=== PATIENT | female | born 1935 | race Caucasian/White ===

== ENCOUNTER → 2024-04-09 | Outpatient (CLI) | payer OTHER, SELFPAY ==
[2024-04-09 11:44] LABS: Basophils # (Auto) 0.1 Thou/mm3 (0.0-0.2); Basophils % (Auto) 2 % (0-2.5); Eosinophils # (Auto) 0.1 Thou/mm3 (0.0-0.5); Eosinophils % (Auto) 4 % (0-10); Hematocrit 38.7 % (36.0-46.0); Hemoglobin 12.6 g/dL (12.0-16.0); Immature Granulocytes % (Auto) 0 % (0-0); Immature Granulocytes Auto 0.01 Thou/mm3 (0.00-0.00); Lymphocytes # (Auto) 0.9 Thou/mm3 (1.0-4.8); Lymphocytes % (Auto) 24 % (10-50); Mean Corpuscular HGB Conc 32.6 g/dl (31.0-37.0); Mean Corpuscular Hemoglobin 31.7 pg (25.0-35.0); Mean Corpuscular Volume 98 fL (80-100); Monocytes # (Auto) 0.5 Thou/mm3 (0.0-0.8); Monocytes % (Auto) 15 % (0-12); Neutrophils # (Auto) 1.9 Thou/mm3 (1.8-7.7); Neutrophils % (Auto) 54 % (37-80); Nucleated Red Blood Cell % 0 /100 WBC (0); Platelet Count 216 Thou/mm3 (140-440); RDW Standard Deviation 52.1 fL (36.4-46.3); Red Blood Count 3.97 Miln/mm3 (4.00-5.20); White Blood Count 3.6 Thou/mm3 (3.6-11.0)
[2024-04-09 12:12] LABS: Glucose Estimated Average 94 mg/dL (80-131); Hemoglobin A1C 4.9 % Hgb (4.8-6.0)
[2024-04-09 13:05] LABS: Alanine Aminotransferase 16 U/L (10-49); Albumin, Serum 4.3 gm/dL (3.4-4.8); Alkaline Phosphatase 102 U/L (46-116); Anion Gap 4 (7-16); Aspartate Amino Transferase 16 U/L (0-34); BUN/Creatinine Ratio 23 Ratio (12-20); Bilirubin,Total 0.7 mg/dL (0.3-1.2); Blood Urea Nitrogen 21 mg/dL (9-23); Calcium 10.6 mg/dL (8.3-10.6); Calcium (Corrected) 10.6 mg/dL (8.5-10.1); Carbon Dioxide 28.7 mMol/L (20.0-31.0); Cardiac Risk Estimate 2.4 RATIO (3.7-5.6); Chloride 112 mMol/L (98-107); Cholesterol 153 mg/dL (132-200); Creatinine (Component) 0.9 mg/dL (0.6-1.3); Globulin 2.1 gm/dL (2.3-3.5); Glucose 112 mg/dL (74-106); HDL Cholesterol 63 mg/dL (40-60); LDL Cholesterol,Calculated 74 mg/dL (0-130); Osmolality,Calculated 292 (275-295); Potassium 4.6 mMol/L (3.4-5.1); Sodium 145 mMol/L (136-145); Total Protein 6.4 gm/dL (5.7-8.2); Triglycerides 79 mg/dL (30-150); eGFR > 60 See Note
== END | disposition home or self-care (01) ==
LOC: COPL 10:38
PROVIDERS: PCP Family Medicine; Referring Provider Family Medicine; Visit Provider Family Medicine
DX: E11.65 Type 2 diabetes mellitus with hyperglycemia (principal); I10 Essential (primary) hypertension
CPT/HCPCS: 36415; 80053; 80061; 83036; 85025

== ENCOUNTER → 2024-04-29 | Outpatient (CLI) | payer OTHER, SELFPAY ==
--- NOTE | 2024-04-29 12:20 | XR_ITS ---
Examination: Bone densitometry Date and time of exam:April 29, 2024 1234 hours INDICATIONS: Menopause age 40, colon cancer diagnosis 15 years ago, personal history osteopenia Technique: Lumbar spine and hip total bone mineralization values of an calculated. Peak reference and age match control results have been displayed. Findings: Lumbar spine total bone mineralization is1.030 gm/cm2. This is 0.2 standard deviations below peak reference. This is 2.7 standard deviations above age-matched controls. Hip total bone mineralization is 0.620 gm/cm2 This is 2.6 standard deviations below peak reference. This is 0.3 standard deviations below age-matched controls Impression: There is normal mineralization based on lumbar spine measurements. There is osteoporosis based on hip measurements Lumbar mineralization is decreased 11.4% compared with April 27, 2022 Hip mineralization is decreased 7.4% compared with April 27, 2022
== END | disposition home or self-care (01) ==
PROVIDERS: PCP Family Medicine; Referring Provider Family Medicine; Visit Provider Family Medicine
DX: M81.8 Other osteoporosis without current pathological fracture (principal)
CPT/HCPCS: 77080

== ENCOUNTER → 2024-09-04 | Outpatient (CLI) | payer OTHER, SELFPAY ==
[2024-09-04 16:51] LABS: Collection Type, Urine Clean Catch
[2024-09-04 17:41] LABS: Bilirubin,Urine Negative (Negative); Blood,Urine Negative (Negative); Clarity,Urine Clear (Clear/Hazy); Color,Urine Yellow (Lt Yel-Yel); Glucose, Urine Negative (Negative); Hyaline Casts,Urine < 1 /hpf (0-1); Ketones,Urine Negative (Negative); Leukocyte Esterase,Urine Positive (Negative); Nitrite,Urine Negative (Negative); PH,Urine 5.5 (5.0-7.0); Protein,Urine Trace (Neg - Trace); RBC,Urine 5 /hpf (0-3); Specific Gravity,Urine 1.041 (1.001-1.035); Squamous Epithelial Cell,Urine 2 /hpf (0-5); Urobilinogen,Urine 2.0 mg/dL (0.0-1.0); WBC,Urine 11 /hpf (0-5)
== END | disposition home or self-care (01) ==
LOC: SLDO 16:47
PROVIDERS: PCP Family Medicine; Referring Provider Family Medicine; Visit Provider Family Medicine
DX: N39.0 Urinary tract infection, site not specified (principal)
CPT/HCPCS: 81001; 87086

== ENCOUNTER 2024-09-14 09:40 | Emergency (ER) | payer OTHER, MEDICAID, SELFPAY ==
[2024-09-14] VITALS (15 sets, daily range): BP systolic 127–163; BP diastolic 69–103; PULSE 71–115; RESP 16–24; TEMP 36.5–36.9; O2SAT 76–98
--- NOTE | 2024-09-14 10:12 | EDNOTE_ITS ---
ED Female Urogenital RME/HPI General Chief complaint: Urogenital-Female Stated complaint: BLOOD IN URIN Time Seen by Provider: 09/14/24 12:58 Arrival date/time: 09/14/24 09:40 Limitations: altered mental status (mild confusion, dementia history) RME / HPI RME / HPI Narrative: DR. ODONNELL MAIN ED EVALUATION: 89 year old female with a history of dementia presents to the Emergency Department [facility] with complaint of blood in the urine. Patient has a recent history of urinary tract infection and reports completing a course of antibiotics, though she is unable to recall the name. Denies nausea, vomiting, lower abdominal pain, or other complaints. Related Data Home Medications ?Medication ?Instructions ?Recorded ?Confirmed metoprolol succinate 25 mg 25 mg PO QDAY 06/01/2306/20 tablet,extended release 24 hr rivaroxaban 15 mg tablet (Xarelto) 15 mg PO QDAY 05/3106/01/23 Previous Rx's ?Medication ?Instructions ?Recorded furosemide 20 mg tablet (Lasix) 20 mg PO QAM leg swell ing #7 tabs 09/14/24 potassium chloride 10 mEq 10 meq PO QDAY low potassium #7 09/14/24 capsule,extended release caps triamcinolone acetonide 0.1 % 1 applic topical BID lef t leg rash 09/14/24 topical cream #30 grams Allergies Allergy/AdvReac Type Severity Reaction Status Date / Time No Known Allergies Allergy Verified 09/14/24 10:17 Review of Systems Review of Systems Systems Reviewed: All systems reviewed, normal except as documented Past Medical History Social History SMOKING STATUS: Never smoker SUBSTANCE USE: does not use ALCOHOL: Never ED Exam General Limitations: Present altered mental status (mild confusion, dementia history) General appearance: Present in no apparent distress Head Head exam: Present atraumatic, normocephalic and normal inspection Eye Eye exam: Present normal appearance, PERRL and EOMI ENT ENT exam: Present normal exam, normal oropharynx and mucous membranes moist Neck Neck exam: Present normal inspection, full ROM and trachea midline Chest Chest inspection: Present normal inspection and symmetric chest wall rise Respiratory Respiratory exam: Present normal lung sounds bilaterally Cardiovascular Cardiovascular exam: Present regular rate, normal rhythm and normal heart sounds Abdominal Exam Abdominal exam: Present soft and normal bowel sounds Extremities Exam Extremities exam: Present full ROM, pedal edema (3+ pitting bilaterally) and other (noted some clear fluid leaking from anterior mid pretibial left lower extremity; left lower extremity more distally there is erythema and edema noted) Back Exam Back exam: Present normal inspection and full ROM Neurological Exam Neurological exam: Present other (at baseline; mild confusion, dementia history) Psychiatric Psychiatric exam: Present other (at baseline) Skin Skin exam: Present warm, dry and intact Course Quality Measures none Orders Category Date Time Status US venous doppler LE BI Stat Exams 09/14/24 13:56 Completed Furosemide Inj [Lasix Inj] Med 09/14/24 13:14 Discontinued 40 mg IVP X1 ONE Vital Signs Vital signs: Vital Signs Temperature 97.7 F 09/14/24 09:59 Pulse Rate 82 09/14/24 09:59 Respiratory Rate 16 09/14/24 09:59 Blood Pressure 152/69 H 09/14/24 09:59 Pulse Oximetry (%) 97 09/14/24 09:59 Oxygen Delivery Method Room Air 09/14/24 09:59 Urogenital - Female MDM Narrative MDM Narrative:: I, Radha Carrasco, hoang scribing for and in the presence of Dr. Odonnell. Urine is negative. Patient was advised to follow-up with urine culture with PCP. Plan to discharge with general weakness, recent UTI, and venous insufficiency. Patient data External records reviewed:: [facility] previous records and EMS form Clinical information provided by:: patient and EMS Social determinants that could affect healthcare access:: none Patient has the following chronic illnesses:: dementia How is presenting disease/condition affected by chronic disease/condition?: exacerbated by Evaluation data The following diagnostics were reviewed and interpreted by me:: radiology exam(s) Lab and/or radiology exams considered but not ordered:: none Interpretation Summary: Procedure(s): US venous doppler LE BI Accession Number(s): [id number] cc: Juan Carlos Odonnell MD; Cheng Pizarro MD; José Miguel Tamayo MD~ Examination: Venous duplex lower extremity sonogram, bilateral. Date and time of exam: September 14, 2024, 1458 hrs. Indications: Left leg swelling beginning 6 months ago Technique: Multiple sonographic images of the deep venous system have been obtained. B-mode/2-D grayscale imaging of vascular structures and Doppler spectral analysis (waveforms) and color performed Both legs are examined. Findings: Deep venous systems do not demonstrate abnormal echogenicity. No diagnostic visualization distal left superficial femoral vein All visualized deep veins exhibit compressibility. All visualized deep veins exhibit augmentation. Impression: No deep vein thrombus demonstrated Dictated By: Cheng Pizarro MD Medications / Prescriptions Medications or Prescriptions considered but not ordered:: none Medication administrations:: Medication Administration History Discontinued Medications Furosemide (Furosemide Inj 10 Mg/Ml 4ml Vial) 40 mg IVP X1 ONE Stop: 09/14/24 13:15 Last Admin: 09/14/24 13:27 Dose: 40 mg Documented By: TM see above if any Consultations Consultation(s) initiated? (list below): No Diagnosis Urogenital Female Differential Diagnosis: other (Recurrent UTI, hematuria secondary to incomplete treatment or irritation, and post-infectious cystitis.) Most likely diagnosis given after review of the tests above:: Generalized weakness Recent UTI Venous insufficiency Admission Indicated Admission indicated?: not indicated Admission Request Was there a request for admission?: No Disposition Plan Disposition Plan: Discharge Discharge Attestation Discharge Attestation: The patient and all family members were given an opportunity to ask questions and understood the discharge instructions. Discharge instructions specifically effects, indications for sooner follow up or return to the emergency department, and the expected course of current diagnosis. Patient condition: Stable Discharge Plan Plan Patient Disposition: HOME (Self Care) Patient condition on transfer: Stable Prescriptions/Referrals Prescriptions/Med Rec: New furosemide [Lasix] 20 mg tablet 20 mg PO QAM MDD 1 Qty: 7 0RF potassium chloride 10 mEq capsule, extended release 10 meq PO QDAY MDD 1 Qty: 7 0RF triamcinolone acetonide 0.1 % cream 1 applic topical BID MDD twice Qty: 30 0RF No Action metoprolol succinate 25 mg tablet extended release 24 hr 25 mg PO QDAY Xarelto 15 mg tablet 15 mg PO QDAY Problem List Clinical Impression: Generalized weakness, Recent urinary tract infection, Venous insufficiency Patient/Caregiver Discharge Instructions Additional Instructions: Raise your legs above heart level. Bed rest for 3 days. Please follow-up with your primary care physician within 2-3 days. Return to the Emergency Department as needed. Print Language: Ukrainian Stand Alone Forms: Tila Award Info., Patient Portal Info Letter
[2024-09-14] MEDS: FUROSEMIDE INJ 10 MG/ML 4ML VIAL 40 MG IVP (13:27)
--- NOTE | 2024-09-14 13:47 | PC.NURSE ---
SPOKE W/MD AT THIS TIME TO CLARIFY US ORDERS, MD TO LOOK AND CHANGE ORDERS.
--- NOTE | 2024-09-14 13:56 | XR_ITS ---
Examination: Venous duplex lower extremity sonogram, bilateral. Date and time of exam: September 14, 2024, 1458 hrs. Indications: Left leg swelling beginning 6 months ago Technique: Multiple sonographic images of the deep venous system have been obtained. B-mode/2-D grayscale imaging of vascular structures and Doppler spectral analysis (waveforms) and color performed Both legs are examined. Findings: Deep venous systems do not demonstrate abnormal echogenicity. No diagnostic visualization distal left superficial femoral vein All visualized deep veins exhibit compressibility. All visualized deep veins exhibit augmentation. Impression: No deep vein thrombus demonstrated
--- NOTE | 2024-09-14 17:17 | PC.NURSE ---
PT NEEDS TRANSPORTATION HOME BROTHER IS UNABLE TO GET HER THERE HIMSELF, ATTEMPTED TO CONTACT CM MULTIPLE TIMES, NO ANSWER AND NO ONE IN OFFICE.
--- NOTE | 2024-09-14 19:36 | PC.NURSE ---
pt awake and alert. VS are stable. waiting for ride home.
== END 2024-09-14 22:49 | disposition home or self-care (01) ==
PROVIDERS: Emergency Provider Family Medicine; PCP Family Medicine
DX: N39.0 Urinary tract infection, site not specified (principal); R31.9 Hematuria, unspecified; I87.2 Venous insufficiency (chronic) (peripheral); R53.1 Weakness
CPT/HCPCS: 93970; 96374; 99283; J1938

== ENCOUNTER 2024-09-28 08:21 | Emergency (ER) | payer OTHER, MEDICAID, SELFPAY ==
[2024-09-28 08:25] VITALS: PULSE 90; RESP 18; O2SAT 98; BMI 40.4
--- NOTE | 2024-09-28 08:32 | EKG_ITS ---
[facility] (Formerly [facility]) Test Date: 2024-09-28 Pat Name: JODEE CONTRERAS Department: Room: - Gender: Female Communications Strategist: : 1935 Requested By: Juan Carlos Chan Order Number: [id number] Reading MD: Juan Carlos Chan Measurements Intervals [place] Rate: 81 P: CA: QRS: 11 QRSD: 92 T: 82 QT: 341 QTc: 396 Interpretive Statements ATRIAL FIBRILLATION NONSPECIFIC T-WAVE ABNORMALITY ABNORMAL RHYTHM ECG Compared to ECG 03/21/2023 11:25:20 T-wave abnormality now present /store/S0/[id number].pdf
[2024-09-28 08:46] VITALS: BP 142/82; PULSE 70; RESP 21; TEMP 36.6; O2SAT 98
--- NOTE | 2024-09-28 08:46 | PD.EDFALL ---
ED Fall Injury RME/HPI General Chief Complaint: Fall Stated Complaint: Fall Time Seen by Provider: 09/28/24 08:32 Arrival date/time: 09/28/24 08:21 Limitations: no limitations RME / HPI RME / HPI Narrative: DR. ODONNELL MAIN ED EVALUATION: 89-year-old female with past medical history of atrial fibrillation on blood thinners presents to the Emergency Department after falling out of her wheelchair. She struck the back of her head but denies loss of consciousness or loss of memory. She reports headache, right rib pain, and right flank pain. No other injuries reported. Related Data Home Medications ?Medication ?Instructions ?Recorded ?Confirmed metoprolol succinate 25 mg 25 mg PO QDAY 06/01/23 06/01/23 tablet,extended release 24 hr rivaroxaban 15 mg tablet (Xarelto) 15 mg PO QDAY 06/01/23 06/01/23 Previous Rx's ?Medication ?Instructions ?Recorded furosemide 20 mg tablet (Lasix) 20 mg PO QAM leg swelling #7 tabs 09/14/24 potassium chloride 10 mEq 10 meq PO QDAY low potassium #7 09/14/24 capsule,extended release caps triamcinolone acetonide 0.1 % 1 applic topical BID left leg rash 09/14/24 topical cream #30 grams Allergies Allergy/AdvReac Type Severity Reaction Status Date / Time No Known Allergies Allergy Verified 09/14/24 10:17 Review of Systems Review of Systems Systems Reviewed: All systems reviewed, normal except as documented Past Medical History Past Medical History CARDIAC: Positive Atrial Fibrillation Social History SMOKING STATUS: Never smoker SUBSTANCE USE: does not use ED Exam General Limitations: Present no limitations General appearance: Present alert and in no apparent distress Eye Eye exam: Present normal appearance, PERRL and EOMI ENT ENT exam: Present normal exam, normal oropharynx and mucous membranes moist Neck Neck exam: Present normal inspection, full ROM and trachea midline Chest Chest inspection: Present normal inspection and symmetric chest wall rise Respiratory Respiratory exam: Present normal lung sounds bilaterally Cardiovascular Cardiovascular exam: Present regular rate, normal rhythm and normal heart sounds Abdominal Exam Abdominal exam: Present soft and normal bowel sounds Extremities Exam Extremities exam: Present normal inspection and full ROM Back Exam Back exam: Present full ROM and tenderness (left flank/mid lower ribs' tenderness) Neurological Exam Neurological exam: Present alert, oriented X3 and CN II-XII intact Psychiatric Psychiatric exam: Present normal affect and normal mood Skin Skin exam: Present warm, dry, intact and normal color Course Quality Measures none Orders Category Date Time Status Gis Software Developer NOW Care 09/28/24 08:48 Active Consult Core Blower Operator NOW Care 09/28/24 11:45 Completed Continuous Pulse Oximetry NOW Care 09/28/24 08:48 Completed EKG (ED ONLY) *Do not use* NOW Care 09/28/24 08:32 Completed Insert IV NOW Care 09/28/24 08:48 Active Referral Wound Care Stat Cons 09/28/24 12:[address] head/brain wo con Stat Exams 09/28/24 08:48 Completed EKG (ED Only) Stat Exams 09/28/24 08:32 Draft US venous doppler LE LT Stat Exams 09/28/24 09:09 Completed XR ribs LT min 3V w CXR1V Stat Exams 09/28/24 08:48 Completed CBC Stat Lab 09/28/24 10:06 Completed Comprehensive Metabolic Panel Stat Lab 09/28/24 10:06 Completed Partial Thromboplastin Time Stat Lab 09/28/24 10:06 Completed Prothrombin Time with INR Stat Lab 09/28/24 10:06 Completed Troponin I Stat Lab 09/28/24 10:06 Completed Acetaminophen Ivpb [Ofirmev Inj] Med 09/28/24 08:51 Discontinued 1,000 mg in 100 ml IV X1 Vital Signs Vital signs: Vital Signs Temperature 97.8 F 09/28/24 08:46 Pulse Rate 70 09/28/24 08:46 Respiratory Rate 21 H 09/28/24 08:46 Blood Pressure 142/82 H 09/28/24 08:46 Pulse Oximetry (%) 98 09/28/24 08:46 Oxygen Delivery Method Room Air 09/28/24 08:46 Fall MDM Narrative MDM Narrative:: IRadha am scribing for and in the presence of Dr. Odonnell. Patient data External records reviewed:: [facility] previous records and EMS form Clinical information provided by:: patient and EMS Social determinants that could affect healthcare access:: none Patient has the following chronic illnesses:: atrial fibrillation on blood thinners How is presenting disease/condition affected by chronic disease/condition?: exacerbated by Evaluation data The following diagnostics were reviewed and interpreted by me:: lab results, radiology exam(s) and EKG tracing(s) Lab and/or radiology exams considered but not ordered:: none Interpretation Summary: My interpretation: EKG performed at 0832 hours, atrial fibrillation, rate 81, no acute changes, no STEMI Hypercalcemia 10.6 Procedure(s): US venous doppler JASPAL JOHNSON Accession Number(s): [id number] cc: Juan Carlos Odonnell MD; Cheng Pizarro MD; José Miguel Tamayo MD~ Examination: Duplex scan of the lower extremity, unilateral left Date and time of exam: September 28, 2024 0943 hours INDICATIONS: Patient fell one month ago with injury to the left leg with persistent left leg pain Technique: Duplex scan of the extremity veins using B-mode/grayscale imaging and Doppler spectral analysis and color flow Attention is directed to internal echogenicity, compression and augmentation involving these veins, color flow assessment, spectral analysis Findings: Major deep venous structures in the extremity demonstrate normal course and caliber. Edema limits visualization distal left superficial femoral vein There is no evidence of deep vein thrombosis. Normal color flow and spectral analysis Impression: Negative for DVT.. Dictated By: Cheng Pizarro MD Procedure(s): XR ribs LT min 3V w CXR1V Accession Number(s): [id number] cc: Juan Carlos Odonnell MD; Cheng Pizarro MD; José Miguel Tamayo MD~ Examination: Ribs, left, with PA chest, 5 views Technique: Chest PA, RIBS AP, RPO, LPO, AP coned lower ribs 5 views Exam date and time: September 28, 2024 1019 hours INDICATIONS: Patient fell today with image is a left chest left rib pain Findings: Mild prominence cardiac contour Ectatic and enlarged thoracic aorta. No pneumothorax. Old fractures proximal left humerus Prominent osteopenia Acute fractures left fifth, sixth, seventh ribs near the midaxillary line IMPRESSION: Acute fractures left fifth, sixth, seventh ribs near the midaxillary line with mild offset No pneumothorax Dictated By: Cheng Pizarro MD Procedure(s): CT head/brain wo con Accession Number(s): [id number] cc: Juan Carlos Odonnell MD; Cheng Pizarro MD; José Miguel Tamayo MD~ Examination: CT brain head without contrast. 2-D sagittal coronal reconstructions Date and time of exam:September 28, 2024, 0928 hours INDICATIONS: Patient fell this morning with injury to the head, head pain CTDI: vol (mGy):49.5 DLP: (mGycm):1023 Technique: Multiple CT axial sections of the brain have been obtained, 5 mm slice thickness. Contrast has not been administered. 2-D sagittal, coronal reconstructions have been obtained Low dose protocols were performed. One or more of the following dose reduction techniques were used; automated exposure control, adjustment of the mA and/or KV according to patient size, use of iterative reconstruction technique. Findings: Mild ventricular enlargement. Intra-axial or extra-axial hemorrhage density is not seen. No mass effect or midline shift Basal cisterns are not remarkable. Fourth ventricle is midline. Cranial vault intact. Small frontal exostoses Impression: Negative for acute hemorrhage, mass effect or midline shift Dictated By: Cheng Pizarro MD Medications / Prescriptions Medications or Prescriptions considered but not ordered:: none Medication administrations:: Medication Administration History Discontinued Medications Acetaminophen (Ofirmev Inj) 1,000 mg in 100 mls @ 250 mls/hr IV X1 ONE Stop: 09/28/24 09:14 Last Infusion: 09/28/24 11:30 Dose: Infused Documented By: Admin: 09/28/24 11:10 Dose: 250 mls/hr Documented By: MATILDE see above Consultations Consultation(s) initiated? (list below): No Diagnosis Fall Differential Diagnosis: other (intracranial hemorrhage, rib fracture with possible hemothorax, musculoskeletal injury) Most likely diagnosis given after review of the tests above:: Acute fractures left fifth, sixth, seventh ribs Left lower leg edema Hypercalcemia Closed head injury Admission Indicated Admission indicated?: not indicated Admission Request Was there a request for admission?: No Disposition Plan Disposition Plan: Discharge Discharge Attestation Discharge Attestation: The patient and all family members were given an opportunity to ask questions and understood the discharge instructions. Discharge instructions specifically effects, indications for sooner follow up or return to the emergency department, and the expected course of current diagnosis. Patient condition: Stable Discharge Plan Plan Patient Disposition: HOME (Self Care) Patient condition on transfer: Stable Prescriptions/Referrals Prescriptions/Med Rec: No Action furosemide [Lasix] 20 mg tablet 20 mg PO QAM MDD 1 Qty: 7 0RF potassium chloride 10 mEq capsule, extended release 10 meq PO QDAY MDD 1 Qty: 7 0RF triamcinolone acetonide 0.1 % cream 1 applic topical BID MDD twice Qty: 30 0RF metoprolol succinate 25 mg tablet extended release 24 hr 25 mg PO QDAY Xarelto 15 mg tablet 15 mg PO QDAY Referrals: No Primary/Family,Physician [Referring Provider] - In 1 week Problem List Clinical Impression: Fracture of left fifth rib, Fracture of left sixth rib, Fracture of left seventh rib, Leg edema, left, Hypercalcemia, Closed head injury Patient/Caregiver Discharge Instructions Additional Instructions: Take Tylenol 500 mg 2 tabs every 6 hours PLUS Advil 200 mg gel 2 tablets as needed for pain. Please follow-up with your primary care physician within 2-3 days and get a wound care consult. Return to the Emergency Department as needed. Print Language: Panamanian Stand Alone Forms: Tila Award Info., Patient Portal Info Letter
--- NOTE | 2024-09-28 09:09 | XR_ITS ---
Examination: Duplex scan of the lower extremity, unilateral left Date and time of exam: September 28, 2024 0943 hours INDICATIONS: Patient fell one month ago with injury to the left leg with persistent left leg pain Technique: Duplex scan of the extremity veins using B-mode/grayscale imaging and Doppler spectral analysis and color flow Attention is directed to internal echogenicity, compression and augmentation involving these veins, color flow assessment, spectral analysis Findings: Major deep venous structures in the extremity demonstrate normal course and caliber. Edema limits visualization distal left superficial femoral vein There is no evidence of deep vein thrombosis. Normal color flow and spectral analysis Impression: Negative for DVT..
[2024-09-28 10:25] LABS: Basophils # (Auto) 0.1 Thou/mm3 (0.0-0.2); Basophils % (Auto) 1 % (0-2.5); Eosinophils # (Auto) 0.1 Thou/mm3 (0.0-0.5); Eosinophils % (Auto) 1 % (0-10); Hematocrit 33.6 % (36.0-46.0); Hemoglobin 10.9 g/dL (12.0-16.0); Immature Granulocytes Auto 0.06 Thou/mm3 (0.00-0.00); Lymphocytes # (Auto) 0.5 Thou/mm3 (1.0-4.8); Lymphocytes % (Auto) 5 % (10-50); Mean Corpuscular HGB Conc 32.4 g/dl (31.0-37.0); Mean Corpuscular Hemoglobin 31.3 pg (25.0-35.0); Mean Corpuscular Volume 97 fL (80-100); Monocytes # (Auto) 0.7 Thou/mm3 (0.0-0.8); Monocytes % (Auto) 8 % (0-12); Neutrophils # (Auto) 8.0 Thou/mm3 (1.8-7.7); Neutrophils % (Auto) 85 % (37-80); Nucleated Red Blood Cell # 0.00 Thou/mm3 (0.00-0.00); Nucleated Red Blood Cell % 0 /100 WBC (0); Platelet Count 341 Thou/mm3 (140-440); RDW Standard Deviation 64.5 fL (36.4-46.3); Red Blood Count 3.48 Miln/mm3 (4.00-5.20); White Blood Count 9.5 Thou/mm3 (3.6-11.0)
[2024-09-28 10:33] LABS: INR 1.2 (0.9-1.3); Partial Thromboplastin Time 31.3 Seconds (22.0-36.0); Prothrombin Time 13.0 Seconds (9.0-12.2)
[2024-09-28 10:36] VITALS: BP 130/97; PULSE 84; RESP 18; TEMP 36.4; O2SAT 97
[2024-09-28] MEDS: ACETAMINOPHEN IVPB 1,000 MG/100 ML VIAL 250 MG IV (11:10)
[2024-09-28 11:12] LABS: Alanine Aminotransferase 8 U/L (10-49); Albumin, Serum 3.8 gm/dL (3.4-4.8); Albumin/Globulin Ratio 1.5 (1.2-2.2); Alkaline Phosphatase 105 U/L (46-116); Anion Gap 9 (7-16); Aspartate Amino Transferase 17 U/L (0-34); BUN/Creatinine Ratio 19 Ratio (12-20); Bilirubin,Total 0.7 mg/dL (0.3-1.2); Blood Urea Nitrogen 19 mg/dL (9-23); Calcium 10.4 mg/dL (8.3-10.6); Calcium (Corrected) 10.6 mg/dL (8.5-10.1); Carbon Dioxide 21.4 mMol/L (20.0-31.0); Chloride 104 mMol/L (98-107); Creatinine (Component) 1.0 mg/dL (0.6-1.3); Estimated Creatinine Clearance 46.4 mL/min (>60); Globulin 2.5 gm/dL (2.3-3.5); Glucose 101 mg/dL (74-106); Osmolality,Calculated 270 (275-295); Potassium 4.5 mMol/L (3.4-5.1); Sodium 134 mMol/L (136-145); Total Protein 6.3 gm/dL (5.7-8.2); Troponin I < 0.020 ng/mL (0.0-0.045); eGFR 54 See Note
[2024-09-28 12:00] VITALS: BP 123/75; PULSE 81; PULSE 83; RESP 16; TEMP 36.8; O2SAT 96
[2024-09-28 14:00] VITALS: BP 156/74; PULSE 80; RESP 18; TEMP 36.9; O2SAT 97
[2024-09-28 16:12] VITALS: BP 147/88; PULSE 87; RESP 16; TEMP 36.9; O2SAT 99
== END 2024-09-28 16:12 | disposition home or self-care (01) ==
PROVIDERS: Emergency Provider Family Medicine; PCP Family Medicine
DX: S22.42XA Multiple fractures of ribs, left side, initial encounter for closed fracture (principal); S09.90XA Unspecified injury of head, initial encounter; S89.92XA Unspecified injury of left lower leg, initial encounter; E83.52 Hypercalcemia; R60.0 Localized edema; I48.91 Unspecified atrial fibrillation; W05.0XXA Fall from non-moving wheelchair, initial encounter; Z79.01 Long term (current) use of anticoagulants
CPT/HCPCS: 36415; 70450; 71101; 80053; 84484; 85025; 85610; 85730; 93005; 93971; 96365; 99283; J0131

== ENCOUNTER 2024-10-01 01:19 | Emergency (ER) | payer OTHER, MEDICAID, SELFPAY ==
[2024-10-01 01:22] VITALS: BMI 42.3
--- NOTE | 2024-10-01 01:29 | EDNOTE_ITS ---
ED Back Injury Pain RME/HPI General Chief Complaint: Back Pain/Injury Stated Complaint: RIB AND BACK PAIN Time Seen by Provider: 10/01/24 01:42 Arrival date/time: 10/01/24 01:19 RME / HPI RME / HPI Narrative: This section includes all my notes and documentations, including HPI, PE, and ED course. Gianni Aponte MD HPI: 89yo female BIBA with continued severe pain. The day before yesterday, she fell out of bed. And landed on her left side. She takes Xarelto. Uncertain about head injury. No LOC. She reports severe pain of the left rib cage. With shortness of breath. No neck pain. No back pain. No abdominal pain. No pain in the arms or legs. No other complaints. ROS: All negative except as documented in HPI. Physical Exam: General:? Alert and oriented.? No acute distress when remaining still. Eyes:? Conjunctivae and lids clear.? EOMI.? PERRL. ENT:? No signs of head trauma. Neck:? Supple.? No tenderness. Heart:? RRR. Lungs:? No respiratory distress.? Good air movement.? No rhonchi, wheezing, rales.? Chest: Severe tenderness of the left rib cage. Abdomen:? Soft and nontender.? Normal bowel sounds.? No distension.? No rebound or guarding.? Back:? No spinal tenderness.? Skin:? Warm and dry.? Neuro:? Alert and oriented X 3.? Cranial Nerves II-XII grossly intact.? No peripheral motor deficits. Musculoskeletal:? All major joints and bones are not tender with no limited ROM. I reviewed EMS notes. I reviewed all diagnostic test results. My review of the CT head report is NAD. My review of the CT cervical spine report is no acute fracture. My review of the CT chest abdomen pelvis report is fractures of the left 4-7 lateral ribs and moderate left pneumothorax and trace hemothorax. My review of the CT thoracic spine report is no acute fracture. My review of the CT lumbar spine report is no acute fracture. Blood tests remarkable for WBC 18.3, ESR 44, CRP 7.9. UA unremarkable. At this point, diagnoses include trauma with rib fractures and pneumothorax and hemothorax. Treatment here included IV fluid and morphine. I discussed the case with [facility].? About the presentation and exam and diagnostics and treatments here.? And need of further care in the spital there.? Will accept the patient. Gianni Aponte MD Related Data Home Medications ?Medication ?Instructions ?Recorded ?Confirmed metoprolol succinate 25 mg 25 mg PO QDAY 06/01/2306/20 tablet,extended release 24 hr rivaroxaban 15 mg tablet (Xarelto) 15 mg PO QDAY 05/3106/01/23 Previous Rx's ?Medication ?Instructions ?Recorded furosemide 20 mg tablet (Lasix) 20 mg PO QAM leg swell ing #7 tabs 09/14/24 potassium chloride 10 mEq 10 meq PO QDAY low potassium #7 09/14/24 capsule,extended release caps triamcinolone acetonide 0.1 % 1 applic topical BID lef t leg rash 09/14/24 topical cream #30 grams Allergies Allergy/AdvReac Type Severity Reaction Status Date / Time No Known Allergies Allergy Verified 09/14/24 10:17 Past Medical History Past Medical History CARDIAC: Positive Atrial Fibrillation; Negative Congestive Heart Failure RESPIRATORY: Negative Chronic Obstructive Pulmonary Disease (COPD) GENITOURINARY: Negative Renal Disease ENDOCRINE: Negative Diabetes Mellitus Type 1 or Diabetes Mellitus Type 2 OTHER HISTORY: Positive Cancer Social History SMOKING STATUS: Never smoker SUBSTANCE USE: does not use ED Exam Narrative Physical exam: As noted in HPI. Course Quality Measures none Orders Category Date Time Status Bedside COVID-19 Antigen Test NOW Care 10/01/24 01:42 Completed Bedside Influenza A&B Antigen Test NOW Care 10/01/24 01:42 Completed Miscellaneous Nursing Order NOW Care 10/01/24 01:42 Completed Saline [Insert IV] NOW Care 10/01/24 01:42 Completed Straight [In and Out Catheter] X1 Care 10/01/24 01:42 Completed Transfer to another facility [Transfer/Discharge] Stat Discharge 10/01/24 05:[address] cervical spine wo con Stat Exams 10/01/24 01:[address] chest abdomen pelvis wo Stat Exams 10/01/24 01:[address] head/brain wo con Stat Exams 10/01/24 01:[address] lumbar spine wo con Stat Exams 10/01/24 01:[address] thoracic spine wo con Stat Exams 10/01/24 01:44 Completed XR chest 1V portable Stat Exams 10/01/24 04:15 Completed Bilirubin,Direct Stat Lab 10/01/24 02:33 Completed Blood Culture (Lab) Stat Lab 10/01/24 02:33 Results CBC Stat Lab 10/01/24 02:33 Completed CK [Creatine Kinase] Stat Lab 10/01/24 02:33 Completed CMP [Comprehensive Metabolic Panel] Stat Lab 10/01/24 02:33 Completed CRP [C-Reactive Protein] Stat Lab 10/01/24 02:33 Completed ESR [Sed Rate (ESR)] Stat Lab 10/01/24 02:33 Completed Free T4 (Free Thyroxine) Stat Lab 10/01/24 02:33 Completed Lactate (Lactic Acid) Stat Lab 10/01/24 02:33 Completed Magnesium Stat Lab 10/01/24 02:33 Completed Procalcitonin Stat Lab 10/01/24 02:33 Completed TSH [Thyroid Stimulating Hormone] Stat Lab 10/01/24 02:33 Completed UA, C/S IF [Urinalysis, C/S if Indicated] Stat Lab 10/01/24 01:52 Completed Morphine Inj Med 10/01/24 01:43 Discontinued 2 mg IVP X1 ONE Morphine Inj Med 10/01/24 03:49 Discontinued 4 mg IVP X1 ONE Ondansetron Inj [Zofran Inj] Med 10/01/24 01:43 Discontinued 4 mg IVP X1 ONE Sodium Chloride 0.9% 1000 ml [Ns] 1,000 ml Med 10/01/24 01:43 Discontinued IV 999 mls/hr Vital Signs Vital signs: Vital Signs Temperature 97.6 F 10/01/24 01:34 Pulse Rate 95 10/01/24 01:34 Respiratory Rate 16 10/01/24 01:34 Blood Pressure 135/73 H 10/01/24 01:34 Pulse Oximetry (%) 95 10/01/24 01:34 Oxygen Delivery Method Room Air 10/01/24 01:34 Back Pain / Injury MDM Narrative MDM Narrative:: 89yo female BIBA with continued severe pain. The day before yesterday, she fell out of bed. And landed on her left side. She takes Xarelto. Uncertain about head injury. No LOC. She reports severe pain of the left rib cage. With shortness of breath. No neck pain. No back pain. No abdominal pain. No pain in the arms or legs. No other complaints. Patient data External records reviewed:: [facility] previous records (Per chart review, patient was admitted here on 09/28/24 for closed head injury.) and EMS form Clinical information provided by:: patient Social determinants that could affect healthcare access:: none Patient has the following chronic illnesses:: aFib How is presenting disease/condition affected by chronic disease/condition?: uneffected by Evaluation data The following diagnostics were reviewed and interpreted by me:: lab results and radiology exam(s) Lab and/or radiology exams considered but not ordered:: none Interpretation Summary: I reviewed all diagnostic test results. My review of the CT head report is NAD. My review of the CT cervical spine report is no acute fracture. My review of the CT chest abdomen pelvis report is fractures of the left 4-7 lateral ribs and moderate left pneumothorax and trace hemothorax. My review of the CT thoracic spine report is no acute fracture. My review of the CT lumbar spine report is no acute fracture. Blood tests remarkable for WBC 18.3, ESR 44, CRP 7.9. UA unremarkable. Medications / Prescriptions Medications or Prescriptions considered but not ordered:: none Medication administrations:: Medication Administration History Discontinued Medications Sodium Chloride (Ns) 1,000 mls @ 999 mls/hr IV .Q1H1M ONE Stop: 10/01/24 02:43 Last Infusion: 10/01/24 03:38 Dose: Infused Documented By: Admin: 10/01/24 02:37 Dose: 999 mls/hr Documented By: MAY Morphine Sulfate (Morphine Sulf Inj 10 Mg/Ml Vial) 2 mg IVP X1 ONE Stop: 10/01/24 01:44 Last Admin: 10/01/24 02:36 Dose: 2 mg Documented By: MAY Morphine Sulfate (Morphine Sulf Inj 10 Mg/Ml Vial) 4 mg IVP X1 ONE Stop: 10/01/24 03:50 Last Admin: 10/01/24 04:34 Dose: 4 mg Documented By: MAY Ondansetron HCl (Ondansetron Inj 2 Mg/Ml Inj 2 Ml) 4 mg IVP X1 ONE; Protocol Stop: 10/01/24 01:44 Last Admin: 10/01/24 02:35 Dose: 4 mg Documented By: MAY IV fluid, Morphine, Zofran Consultations Consultation(s) initiated? (list below): Yes Consultation #1 (Physician, Specialty, Details): I discussed the case with [facility].? About the presentation and exam and diagnostics and treatments here.? And need of further care in the hospital there.? Will accept the patient. Diagnosis Differential diagnosis back pain/injury: other (Intracranial hemorrhage, spinal fracture, rib fractures, pneumothorax, internal organ injury) Most likely diagnosis given after review of the tests above:: At this point, diagnoses include trauma with rib fractures and pneumothorax and hemothorax. Admission Indicated Admission indicated?: indicated Explain why admission is indicated or not indicated:: Diagnoses include trauma with rib fractures and pneumothorax and hemothorax. Admission Request Was there a request for admission?: No Disposition Plan Disposition Plan: Transfer Discharge Plan Plan Patient Disposition: [facility] Pt Being Transferred to: [facility] Service Needed for Transfer: General Surgery Discharge Disposition comment: TRAUMA SERVICE Patient condition on transfer: Stable Prescriptions/Referrals Prescriptions/Med Rec: No Action furosemide [Lasix] 20 mg tablet 20 mg PO QAM MDD 1 Qty: 7 0RF potassium chloride 10 mEq capsule, extended release 10 meq PO QDAY MDD 1 Qty: 7 0RF triamcinolone acetonide 0.1 % cream 1 applic topical BID MDD twice Qty: 30 0RF metoprolol succinate 25 mg tablet extended release 24 hr 25 mg PO QDAY Xarelto 15 mg tablet 15 mg PO QDAY Referrals: José Miguel Tamayo MD [Primary Care Provider] - In 1 week Problem List Clinical Impression: Trauma, Traumatic fracture of ribs of left side with pneumothorax, Hemothorax, left Patient/Caregiver Discharge Instructions Print Language: Albanian Stand Alone Forms: Tila Award Info., Patient Portal Info Letter
[2024-10-01 01:34] VITALS: BP 135/73; PULSE 95; RESP 16; TEMP 36.4; O2SAT 95
--- NOTE | 2024-10-01 01:43 | XR_ITS ---
Examination: CT cervical spine without contrast 2-D sagittal reconstructions 2-D coronal reconstructions 3-D reconstructions. Exam date and time:October 01, 2024 0308 hours INDICATION: Frequent falls in the last month with injury to the neck, neck pain CTDI:vol (mGy) 18 DLP: (mGycm) 348 Technique: Multiple 2 mm axial sections of the cervical spine have been obtained. The coronal and sagittal reconstructions have been obtained. 3-D reconstructions have been obtained. Low dose protocols were performed. One or more of the following dose reduction techniques were used; automated exposure control, adjustment of the mA and/or KV according to patient size, use of iterative reconstruction technique. Findings: Axial sections demonstrate intact base of the skull. C1 exhibit satisfactory relationship to the odontoid. No acute cervical vertebral body fracture seen. Alignment posterior spinous processes satisfactory. Impression: No acute cervical fracture. A minute left apical pneumothorax axial image 113
--- NOTE | 2024-10-01 01:43 | XR_ITS ---
Examination: CT chest, without intravenous contrast. CT abdomen, without intravenous contrast. CT pelvis, without intravenous contrast. 2-D sagittal and coronal reconstructions. 3-D reconstructions. Date and time of exam:October 01, 2024, 0312 hours INDICATIONS: Frequent falls in the last week with chest and abdominal pain after injury to suggest an abdomen CTDI vol (mgy) 18.2 DLP (MGycm)1247 Technique: Multiple CT images, 3.0 mm slice thickness, obtained chest, abdomen, pelvis, with the high-resolution 64 slice scanner.. Sagittal and coronal 2-D reconstructions are obtained. 3-D reconstructions Low dose protocols were performed. One or more of the following dose reduction techniques were used; automated exposure control, adjustment of the mA and/or KV according to patient size, use of iterative reconstruction technique. Findings: Thoracic aorta pulmonary arteries appear intact on this noncontrast study [id number] enlargement left ventricle Left pneumothorax estimated at 40% Acute fractures left fourth, fifth, sixth, seventh ribs with mild offset and small left hemothorax Manubrium sternum intact No thoracic or lumbar vertebral body compression fracture Grade 1 spondylolisthesis L5 on S1 Liver is irregular in contour, no liver or splenic or renal laceration Soft tissue contusion in the subcutaneous tissue left flank Bones of the pelvis and hips appear intact Multiple left inguinal lymph nodes IMPRESSION: Acute fractures left fourth, fifth, sixth, seventh ribs Left pneumothorax 40% Minimal left hemothorax Suspect primary hepatocellular disease No abdominal parenchymal laceration. No free blood in the abdomen or pelvis Soft tissue contusion in the subcutaneous tissue left flank
--- NOTE | 2024-10-01 01:43 | XR_ITS ---
Examination: CT lumbar spine, without contrast. 2-D sagittal reconstructions. 2-D coronal reconstructions. 3-D reconstructions. Date and time of exam:October 01, 2024 0316 hours INDICATIONS: Frequent falls in the last month with injury to the lumbar spine, low back pain CTDI: vol (mGy):61.7 DLP: (mGycm):1480 Technique: Multiple 1.25 mm axial sections of the lumbar spine without intravenous contrast have been obtained. 2-D sagittal and coronal reconstructions have been obtained. 3-D reconstructions have been obtained. Low dose protocols were performed. One or more of the following dose reduction techniques were used; automated exposure control, adjustment of the mA and/or KV according to patient size, use of iterative reconstruction technique. Findings: Prominent osteopenia. Grade 1-2 spondylolisthesis of L5 on S1. No lumbar vertebral body compression fracture. Lumbar pedicles, laminae transverse and posterior spinous processes intact IMPRESSION: No acute lumbar fracture
--- NOTE | 2024-10-01 01:43 | XR_ITS ---
Examination: CT brain head without contrast. 2-D sagittal coronal reconstructions Date and time of exam:October 01, 2024, 0308 hours INDICATIONS: Frequent falls in the last month with injury to the head, head pain CTDI: vol (mGy):53 DLP: (mGycm):1021 Technique: Multiple CT axial sections of the brain have been obtained, 5 mm slice thickness. Contrast has not been administered. 2-D sagittal, coronal reconstructions have been obtained Low dose protocols were performed. One or more of the following dose reduction techniques were used; automated exposure control, adjustment of the mA and/or KV according to patient size, use of iterative reconstruction technique. Findings: No significant ventricular enlargement. Intra-axial or extra-axial hemorrhage density is not seen. No mass effect or midline shift Basal cisterns are not remarkable. Fourth ventricle is midline. Cranial vault intact. Frontal bone exostoses Impression: Negative for acute hemorrhage, mass effect or midline shift
--- NOTE | 2024-10-01 01:44 | XR_ITS ---
Examination: CT thoracic spine, without contrast. 2-D sagittal reconstructions. 2-D coronal reconstructions. 3-D reconstructions. Date and time of exam:October 01, 2024, 0316 hours INDICATIONS: Frequent falls in the last week, back pain CTDI: vol (mGy):37 DLP: (mGycm):1226 Technique: Multiple 1.25 mm axial sections of the thoracic spine without intravenous contrast have been obtained. 2-D sagittal and coronal reconstructions have been obtained. 3-D reconstructions have been obtained. Low dose protocols were performed. One or more of the following dose reduction techniques were used; automated exposure control, adjustment of the mA and/or KV according to patient size, use of iterative reconstruction technique. Findings: Prominent osteopenia. No thoracic vertebral body compression fracture No focal thoracic disc protrusion Please see the CT chest report for description of pneumothorax IMPRESSION: No acute thoracic fracture
[2024-10-01 02:00] LABS: Collection Type, Urine Clean Catch
[2024-10-01 02:05] LABS: Bilirubin,Urine Negative (Negative); Blood,Urine Negative (Negative); Clarity,Urine Clear (Clear/Hazy); Color,Urine Lt-Yellow (Lt Yel-Yel); Culture Indicated,Urine Not Indicated; Glucose, Urine Negative (Negative); Hyaline Casts,Urine < 1 /hpf (0-1); Ketones,Urine Negative (Negative); Leukocyte Esterase,Urine Negative (Negative); Nitrite,Urine Negative (Negative); PH,Urine 5.0 (5.0-7.0); Protein,Urine Negative (Neg - Trace); RBC,Urine 1 /hpf (0-3); Specific Gravity,Urine 1.018 (1.001-1.035); Squamous Epithelial Cell,Urine 10 /hpf (0-5); Urobilinogen,Urine Negative mg/dL (0.0-1.0); WBC,Urine 1 /hpf (0-5)
[2024-10-01] MEDS: ONDANSETRON INJ 2 MG/ML INJ 2 ML 4 MG IVP (02:35)
[2024-10-01] MEDS: MORPHINE SULF INJ 10 MG/ML VIAL 2 MG IVP (02:36)
[2024-10-01] MEDS: SODIUM CHLORIDE 0.9% 1000 ML 1,000 ML 999 ML IV (02:37)
[2024-10-01 02:39] LABS: Lactate (Lactic Acid) 1.3 mMol/L (0.4-2.0)
[2024-10-01 02:41] LABS: Basophils # (Auto) 0.1 Thou/mm3 (0.0-0.2); Basophils % (Auto) 0 % (0-2.5); Eosinophils # (Auto) 0.2 Thou/mm3 (0.0-0.5); Eosinophils % (Auto) 1 % (0-10); Hematocrit 34.2 % (36.0-46.0); Hemoglobin 11.0 g/dL (12.0-16.0); Immature Granulocytes Auto 0.09 Thou/mm3 (0.00-0.00); Lymphocytes # (Auto) 0.6 Thou/mm3 (1.0-4.8); Lymphocytes % (Auto) 3 % (10-50); Mean Corpuscular HGB Conc 32.2 g/dl (31.0-37.0); Mean Corpuscular Hemoglobin 31.3 pg (25.0-35.0); Mean Corpuscular Volume 97 fL (80-100); Monocytes # (Auto) 1.1 Thou/mm3 (0.0-0.8); Monocytes % (Auto) 6 % (0-12); Neutrophils # (Auto) 16.3 Thou/mm3 (1.8-7.7); Neutrophils % (Auto) 89 % (37-80); Nucleated Red Blood Cell # 0.00 Thou/mm3 (0.00-0.00); Nucleated Red Blood Cell % 0 /100 WBC (0); Platelet Count 377 Thou/mm3 (140-440); RDW Standard Deviation 65.2 fL (36.4-46.3); Red Blood Count 3.52 Miln/mm3 (4.00-5.20); White Blood Count 18.3 Thou/mm3 (3.6-11.0)
[2024-10-01 03:13] LABS: Sed Rate (ESR) 44 mm/hr (0-30)
[2024-10-01 03:14] LABS: Alanine Aminotransferase 9 U/L (10-49); Albumin, Serum 3.7 gm/dL (3.4-4.8); Albumin/Globulin Ratio 1.4 (1.2-2.2); Alkaline Phosphatase 111 U/L (46-116); Anion Gap 10 (7-16); Aspartate Amino Transferase 16 U/L (0-34); BUN/Creatinine Ratio 28 Ratio (12-20); Bilirubin,Direct 0.2 mg/dL (0.0-0.3); Bilirubin,Total 0.5 mg/dL (0.3-1.2); Blood Urea Nitrogen 28 mg/dL (9-23); C-Reactive Protein 7.9 mg/dL (0.0-0.9); Calcium 10.4 mg/dL (8.3-10.6); Calcium (Corrected) 10.6 mg/dL (8.5-10.1); Carbon Dioxide 22.1 mMol/L (20.0-31.0); Chloride 105 mMol/L (98-107); Creatine Kinase 26 U/L (34-171); Creatinine (Component) 1.0 mg/dL (0.6-1.3); Estimated Creatinine Clearance 42.6 mL/min (>60); Free T4 (Free Thyroxine) 1.07 ng/dL (0.89-1.76); Globulin 2.6 gm/dL (2.3-3.5); Glucose 98 mg/dL (74-106); Magnesium 1.9 mg/dL (1.6-2.6); Osmolality,Calculated 279 (275-295); Potassium 4.1 mMol/L (3.4-5.1); Procalcitonin 0.21 ng/ml (0.0-0.49); Sodium 137 mMol/L (136-145); Thyroid Stimulating Hormone 2.42 uIU/mL (0.55-4.78); Total Protein 6.3 gm/dL (5.7-8.2); eGFR 54 See Note
--- NOTE | 2024-10-01 03:40 | PRELIM_ITS ---
CT scan of the head without intravenous contrast (axial sections with sagittal and coronal reformats) October 01, 2024 0308 hours Clinical History: Fall Comparison: No prior study is available for comparison. Findings: There is no evidence of intracranial hemorrhage, mass effect or midline shift. There are periventricular white matter hypodensities, compatible with chronic small vessel ischemia. There is mild volume loss. There are small osteomas in the outer table of the bilateral frontal calvarium. The mastoid air cells and the visualized paranasal sinuses are clear. Impression: No evidence of intracranial hemorrhage, midline shift or calvarial fracture. Periventricular chronic small vessel ischemia and volume loss. Report Electronically Signed By: Kym Jett 10/01/2024 3:39:50 AM [EST]
--- NOTE | 2024-10-01 03:51 | PRELIM_ITS ---
CT scan of the cervical spine without intravenous contrast (axial sections with sagittal and coronal reformats) October 01, 2024 0308 hours Clinical History: Trauma Comparison: No prior study is available for comparison. Findings: There is straightening of the cervical lordosis, which may be due to muscle spasm or positioning. There is no evidence of fracture or traumatic subluxation. There is minimal anterolisthesis of C4 on C5 vertebra. There are multilevel degenerative changes in the form of marginal osteophytes, decreased disc height, uncinate process and facet arthrosis, most prominent at C5-C6 and C6-C7 causing mild spinal canal and bilateral neural foraminal narrowing. The prevertebral soft tissues are unremarkable. There is a small left apical pneumothorax. Impression: No evidence of fracture or traumatic subluxation. Small left apical pneumothorax. Report on chest abdomen and pelvis CT to follow. Report Electronically Signed By: Kym Jett 10/01/2024 3:51:03 AM [EST]
--- NOTE | 2024-10-01 04:12 | PRELIM_ITS ---
CT scan of the thoracic spine without intravenous contrast (axial sections with sagittal and coronal reformats) October 01, 2024 0316 hours Clinical History: Fall Comparison: No prior study is available for comparison. Findings: There is no evidence of fracture or traumatic subluxation. Degenerative changes are noted in the form of multilevel marginal osteophytes, decreased disc spaces and facet arthropathy. There is no pre or paravertebral soft tissue abnormality. There is a small left apical pneumothorax Impression: No evidence of fracture or traumatic subluxation. Small left apical pneumothorax. Report on chest abdomen and pelvis CT to follow. Report Electronically Signed By: Kym Jett 10/01/2024 4:12:12 AM [EST]
--- NOTE | 2024-10-01 04:15 | XR_ITS ---
Examination: AP chest single view Technique one AP portable semiupright chest single view Date and time: October 01, 2024 0450 hours Comparison September 28, 2024 INDICATIONS: Shortness of breath today. FINDINGS: Mild enlargement cardiac contour Moderate vascular congestion. Subsegmental atelectasis left base No cyrus pulmonary edema Left apical pneumothorax, at least 20% Fractures left fourth fifth and sixth ribs with mild offset IMPRESSION: Acute appearing fractures left fourth fifth and sixth ribs with at least 20% left apical pneumothorax
--- NOTE | 2024-10-01 04:17 | PRELIM_ITS ---
CT scan of the chest, abdomen and pelvis without intravenous contrast (axial sections with sagittal and coronal reformats) October 01, 2024 0312 hours Clinical History: Fall Comparison: No prior study is available for comparison. Findings: The evaluation is limited due to the absence of intravenous contrast. There are acute mildly displaced fractures of the left 4th, 5th, 6th and 7th lateral ribs. There is moderate left pneumothorax with compressive atelectasis of the lingula. There is trace complex left pleural effusion, which in the setting of trauma, likely represents hemothorax. There is scarring in bilateral upper lobes. The aorta is unremarkable on this noncontrast study. There is no mediastinal collection. There is no pericardial effusion. The gallbladder is surgically absent. There is nodular thickening of both adrenal glands. Nonspecific perinephric fat stranding is noted bilaterally. There is a 2.7 cm right renal cyst. The liver, spleen, pancreas are unremarkable on this noncontrast study. A small hiatal hernia is present. The bowel is unremarkable for trauma. A moderate amount of fecal material is present in the colon. There are multiple colonic diverticula without evidence of diverticulitis. The urinary bladder is incompletely distended at the time of the examination. The uterus and adnexa are unremarkable. There is no free fluid or free air. There is anterolisthesis of L5 on S1. 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 Degenerative changes are identified in the spine. There is diffuse subcutaneous edema. There is fat stranding in the left lower abdominal wall and hip region. There are multiple enlarged left inguinal lymph nodes, largest one measuring 3.6 x 2.6 cm. A small fat-containing umbilical hernia is present. There is diffuse muscular atrophy. Impression: Limited evaluation as described. 1. Acute mildly displaced fractures of the left 4th, 5th, 6th and 7th lateral ribs, with moderate left pneumothorax and trace hemothorax. 2. Subcutaneous contusion versus cellulitis in the left lateral lower abdominal wall and hip region. Recommend clinical correlation. 3. Other findings as described above. Discussion Details: Results verbally communicated to : Dr Aponte at 04:10 AM 10/01/2024 Report Electronically Signed By: Kym Jett 10/01/2024 4:16:24 AM [EST]
[2024-10-01 04:21] VITALS: BP 141/79; PULSE 85; RESP 20; TEMP 36.3; O2SAT 98
--- NOTE | 2024-10-01 04:21 | PRELIM_ITS ---
CT scan of the lumbar spine without intravenous contrast (axial sections with sagittal and coronal reformats) October 01, 2024 0316 hours Clinical History: Fall Comparison: No prior study is available for comparison. Findings: There is no evidence of fracture or subluxation. Degenerative changes are noted in the form of multilevel marginal osteophytes, decreased disc spaces and facet arthropathy. The soft tissues are unremarkable. There is grade 1 anterolisthesis of L5 on [id number]. 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 Impression: No evidence of fracture or traumatic subluxation. Other findings as described above. Report Electronically Signed By: Kym Jett 10/01/2024 4:20:47 AM [EST]
[2024-10-01] MEDS: MORPHINE SULF INJ 10 MG/ML VIAL 4 MG IVP (04:34)
--- NOTE | 2024-10-01 05:48 | PC.NURSE ---
[facility] accepts for trauma transfer. MD [facility] ED to ED at [id number]. Report to be called at [phone]
[2024-10-01 06:33] VITALS: BP 134/63; PULSE 82; RESP 20; TEMP 35.9; O2SAT 99
--- NOTE | 2024-10-01 06:54 | PC.NURSE ---
Report called to [facility], report received by Deanna Alfaro RN
== END 2024-10-01 07:03 | disposition short-term general hospital (02) ==
PROVIDERS: Emergency Provider Emergency Medicine; PCP Family Medicine
DX: S22.42XA Multiple fractures of ribs, left side, initial encounter for closed fracture (principal); S27.2XXA Traumatic hemopneumothorax, initial encounter; S19.9XXA Unspecified injury of neck, initial encounter; S09.90XA Unspecified injury of head, initial encounter; S39.91XA Unspecified injury of abdomen, initial encounter; S39.92XA Unspecified injury of lower back, initial encounter; R06.02 Shortness of breath; W06.XXXA Fall from bed, initial encounter; Z75.1 Person awaiting admission to adequate facility elsewhere
CPT/HCPCS: 51701; 36415; 70450; 71045; 71250; 72125; 72128; 72131; 74176; 80053; 81001; 82248; 82550; 83605; 83735; 84145; 84439; 84443; 85025; 85652; 86140; 87040; 87400; 87811; 96361; 96374; 96375; 96376; 99283; J2270; J2405; J7030